=== PATIENT | female | born 1945 | race Caucasian/White ===

== ENCOUNTER → 2016-05-12 | Outpatient (CLI) | payer MEDICARE ==
--- NOTE | 2016-05-12 17:01 | MR ---
EXAMINATION TYPE: MR cervical spine wo con DATE OF EXAM: 05/12/2016 2:17 PM COMPARISON: NONE HISTORY: myalgia, osteoarthritis, disturbance of skin, cisneros TECHNIQUE: Multiplanar, multisequence images of the cervical spine were acquired. C2-C3: No evidence for degenerative disc disease. No disc bulge/herniation or protrusion. No Canal stenosis. Foramina are patent bilaterally. C3-C4: No evidence for degenerative disc disease. No disc bulge/herniation or protrusion. No Canal stenosis. Foramina are patent bilaterally. C4-C5: Minimal disc bulging is anterior thecal sac contact. No cord contact is evident. No spinal can al stenosis or neural foraminal stenosis is present. C5-C6: No focal disc herniation or significant disc bulge is evident. Mild right foraminal narrowing from uncovertebral joint hypertrophy is present. Left foramen is patent. C6-C7: Minimal disc bulge is present with anterior thecal sac contact. No AP spinal canal stenosis is present. No cord contact is evident. Neural foramen are patent. C7-T1: No evidence for degenerative disc disease. No disc bulge/herniation or protrusion. No Canal stenosis. Foramina are patent bilaterally. Cervical segments are intact. There is a kyphosis centered at C5. Cervical spinal cord is of normal signal. Craniovertebral junction relationships are within normal limits. IMPRESSION: Cervical kyphosis centered at C5. 2. Minimal disc bulging C4-5 and C6-7
== END | disposition home or self-care (01) ==
LOC: RADMRIMAIN 13:16
PROVIDERS: ATTEND Otolaryngology
DX: M50.221 Other cervical disc displacement at C4-C5 level (principal); M40.292 Other kyphosis, cervical region
CPT/HCPCS: 72141

== ENCOUNTER → 2016-10-24 | Outpatient (CLI) | payer MEDICARE ==
[2016-10-24 17:03] LABS: Blood Urea Nitrogen 13 mg/dL (7-17); Non-African American GFR(MDRD) >60 (>60 ml/min/1.73 sqM)
--- NOTE | 2016-10-24 18:01 | CT ---
EXAMINATION TYPE: CT angio neck DATE OF EXAM: 10/24/2016 HISTORY: Right sided stenosis, possible blood flow found on past doppler. COMPARISON: NONE CT DLP: 180.30 mGycm. Automated Exposure Control for Dose Reduction was Utilized. TECHNIQUE: CTA scan of the neck is performed with IV Contrast, patient injected with 65 mL of Omnipa que 350, axial images are obtained, coronal and sagittal reformatted images are reviewed. Three-D rec onstructed images are created on an independent workstation and reviewed. FINDINGS: There is normal branching pattern of the great vessels on the aortic arch. There is bilateral arteria l flow in the vertebral arteries. There is arterial flow in the basilar artery. There is subtotal occlusion of the proximal right internal carotid artery. There is plaque formation. There is approximate 50% stenosis of the left internal carotid artery near its origin. There is a di minutive right internal carotid artery in the petrous segment. There is very little arterial flow and visualized lumen in the mid and distal right internal carotid artery. IMPRESSION: Normal vertebral arteries. 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 Approximate 50% stenosis at the origin of the left internal carotid artery.
== END | disposition home or self-care (01) ==
LOC: RADCTMAIN 16:04
PROVIDERS: ATTEND Surgery Vascular Surgery
DX: I65.23 Occlusion and stenosis of bilateral carotid arteries (principal)
CPT/HCPCS: 82565; 84520; 70498; 36415; Q9967

== ENCOUNTER → 2017-06-01 | Outpatient (CLI) | payer MEDICARE ==
[2017-06-02 14:54] LABS: C-ANCA <1:20 Titer (<1:20); P-ANCA <1:20 Titer (<1:20)
== END | disposition home or self-care (01) ==
LOC: LABWHC1 08:35
PROVIDERS: ATTEND Psychiatry & Neurology Neurology
DX: G62.9 Polyneuropathy, unspecified (principal)
CPT/HCPCS: 36415; 82550; 85652; 86038; 86235; 86255

== ENCOUNTER → 2019-12-19 | Outpatient (CLI) | payer MEDICARE | END | disposition home or self-care (01) | LOC: LABWHC1 11:17 | PROVIDERS: ATTEND Psychiatry & Neurology Neurology | DX: G72.9 Myopathy, unspecified (principal) | CPT/HCPCS: 36415; 82550; 83519; 86255 ==

== ENCOUNTER → 2020-03-18 | Outpatient (CLI) | payer MEDICARE | END | disposition home or self-care (01) | LOC: LABPAT 15:37 | PROVIDERS: ATTEND Surgery | DX: Z20.822 Contact with and (suspected) exposure to COVID-19 (principal) | CPT/HCPCS: U0003; C9803; U0005 ==

== ENCOUNTER 2020-03-24 09:53 | Day surgery (SDC) | payer MEDICARE ==
[2020-03-19 15:09] VITALS: BMI 23.0
[2020-03-24] MEDS: DEXAMETHASONE SOD PHOSPHATE 4 MG/ML 1 ML VIAL IV ONE ×2 (09:40→10:40)
[2020-03-24] MEDS: ONDANSETRON 4 MG/2 ML VIAL IVP ONE ×2 (09:40→10:40)
[2020-03-24] MEDS: HEPARIN SODIUM,PORCINE 5,000 UNIT/ML 1 ML VIAL SQ PRN ×2 (09:40→10:40)
[2020-03-24] MEDS: ACETAMINOPHEN TAB 500 MG TAB PO PRN ×2 (09:40→10:40)
[2020-03-24] MEDS: LIDOCAINE 1% (10MG/ML) FOR IV START INTRADERMA PRN ×2 (09:40→10:40)
[~2020-03-24 09:53] MED LIST: HYDROmorphone 0.5 MG/0.5 ML SYRINGE IVP PRN; LACTATED RINGERS 1,000 ML IV SCH; MIDAZOLAM 2 MG/2 ML VIAL IV PRN; Pre Op ABX Message 1 EACH MISC MISCELLANE ONE; fentaNYL (PF) 50 MCG/ML 2 ML AMP IV PRN
[2020-03-24] MEDS ORDERED: LIDOCAINE 1% INJ 10MG/ML (20 ML MDV) ONE (11:04)
[2020-03-24] MEDS ORDERED: fentaNYL (PF) 50 MCG/ML 2 ML AMP ONE (11:04)
[2020-03-24] MEDS ORDERED: PROPOFOL 10 MG/ML 20 ML VIAL IV ONE (11:04)
[2020-03-24] MEDS ORDERED: PHENYLEPHRINE 10 MG/ML VIAL ONE (11:04)
[2020-03-24] MEDS ORDERED: SODIUM CHLORIDE 0.9% 50 ML with ceFAZolin 2,000 MG IV ONE ×2 (11:31)
[2020-03-24] MEDS ORDERED: BUPIVACAINE (PF) 0.5% 30 ML VIAL SQ ONE (11:31)
[2020-03-24 12:01] VITALS: TEMP 97.1
[2020-03-24] MEDS ORDERED: NALOXONE 0.4 MG/ML 1 ML VIAL IV PRN (12:22)
--- NOTE | 2020-03-24 12:25 | P.OP ---
Date of Procedure: 03/24/20 Procedure(s) Performed: PREOPERATIVE DIAGNOSIS: Muscular weakness POSTOPERATIVE DIAGNOSIS: Same PROCEDURE: Right quadriceps muscle biopsy SURGEON: Melissa EBL: Minimal ANESTHESIA: General COMPLICATIONS: None OPERATIVE PROCEDURE: Patient place in the operating table in the supine position. The patient's right thigh was prepped and draped sterilely. The skin was localized with Marcaine. An incision was then made. Subcutaneous tissues and fascia were divided using electrocautery. Patient's quadricep muscle was biopsied at that time. 3 separate pieces of muscle removed. A 1.5 cm tube, a 1.0 mL, and a 5-6 mm piece of muscle were removed and sent to pathology per [facility]'s instructions. Subcutaneous tissues were inspected. No bleeding was seen. The fascia was reapproximated using a short running 3-0 Vicryl suture. The subcutaneous tissues were closed using 3-0 Vicryl sutures. Skin was closed using a running 4-0 Monocryl suture. Skin glue applied. DISPOSITION: Stable to recovery room
[2020-03-24 12:49] VITALS: BP 118/60; PULSE 63; RESP 16
--- NOTE | 2020-03-26 07:32 | CDI ---
Date: 03.26.20 CDS/Php Programmer Name: Nelli Ramirez Phone: If any questions, call Janeth Otto Car Rental Agent at [phone] Patient Name: Ashley Feliciano Admit Date 03.24.20 Discharge Date: 03.24.20 ATTENTION: The [facility] Coding Staff appreciate your assistance in clarifying documentation. Please respond to the clarification below the line at the bottom and electronically sign. The [facility] Coding staff will review the response and follow-up if needed. Please note: Queries are made part of the Legal Health Record. If you have any questions, please contact the Car Rental Agent. Dear Dr. Torres In order to code to the greatest specificity and for the greatest reimbursement I need the following information: You have documented in your OP note that 3 separate pieces of muscle removed, please specify the depth of the biopsies: __Superficial _x_Deep Thank you for your kind consideration. MTDD
== END 2020-03-24 13:10 | disposition home or self-care (01) ==
LOC: OR 09:53
PROVIDERS: ATTEND Surgery
DX: M60.851 Other myositis, right thigh (principal); M32.9 Systemic lupus erythematosus, unspecified; I73.9 Peripheral vascular disease, unspecified; I65.21 Occlusion and stenosis of right carotid artery; M19.90 Unspecified osteoarthritis, unspecified site; Z79.52 Long term (current) use of systemic steroids; Z79.899 Other long term (current) drug therapy; Z79.82 Long term (current) use of aspirin; Z86.73 Personal history of transient ischemic attack (TIA), and cerebral infarction without residual deficits; Z87.891 Personal history of nicotine dependence
CPT/HCPCS: 20205; J1644; J1100; J2370; J2405; J0690; J2001; J3010; J2704

== ENCOUNTER → 2024-01-05 | Day surgery (SDC) | payer MEDICARE ==
--- NOTE | 2024-01-04 17:56 | HP ---
HISTORY AND PHYSICAL CHIEF COMPLAINT: Fluid in both ears. HISTORY OF PRESENT ILLNESS: This patient is a 78-year-old female, who was recently seen in my office complaining of having a plugged sensation mainly in the left ear, but occasionally in her right ear. She denied having had a recent upper respiratory tract infection. At the time that she was seen in the office, clinical examination of the ears revealed chronic bilateral serous otitis media, so-called glue ear. The patient was given two rounds of oral dexamethasone and followed up in the office. When the patient returned, she stated that the left ear was not any better and the right ear was also causing problems. Clinical examination once again revealed evidence of chronic bilateral serous otitis media, so-called glue ear. It was, therefore, recommended that she undergo a bilateral myringotomy with insertion of ventilation tubes under IV sedation with MAC. PAST MEDICAL HISTORY: Reveals the patient has no known allergies to medications. MEDICATIONS: Her current medications include atorvastatin. REVIEW OF SYSTEMS: Reveals that the, METABOLIC/ENDOCRINE SYSTEM: Positive for hypercholesterolemia. MUSCULOSKELETAL SYSTEM: Positive for osteoarthritis and cervical myalgia. Remainder review of systems is unremarkable. PREVIOUS SURGERIES: Include tonsillectomy and adenoidectomy, bilateral cataract surgery, and colonoscopy. The patient is 0 para, 0 , 0 miscarriage. PHYSICAL EXAMINATION: GENERAL: This patient is a 78-year-old female, who is alert and cooperative. HEENT: The patient is normocephalic. Both tympanic membranes are dull with fluid in both middle ear spaces. Pupils equal, round, reactive to light and accommodation. Extraocular movements are within normal limits. Intranasal examination reveals moderate to severe septal deviation with compensatory hypertrophy of the inferior turbinates and a moderate amount of mucus on the mucous membranes and draining down the posterior pharynx. Examination of the oropharynx and the remainder of the head and neck exam all within normal limits. CHEST/CARDIOVASCULAR: Both lung orr are clear to percussion and auscultation. The patient is in regular sinus rhythm. S1, S2 are present without evidence any murmurs, S3s, or S4s. Peripheral pulses are bilaterally symmetrical. ABDOMEN: There is no evidence any masses, megaly, or tenderness. The abdomen is soft. SKIN: Unremarkable. MUSCULOSKELETAL: Within normal limits. NEUROLOGICAL: Within normal limits. PELVIC/RECTAL: This should be printed. The pelvic/rectal exam is deferred at this time because the patient has it done on a regular basis at her family physician's office. The remainder of the physical exam is unremarkable. IMPRESSION: Chronic bilateral serous otitis media. PLAN: The patient is scheduled to undergo a bilateral myringotomy with insertion of ventilation tubes under IV sedation with MAC in the a.m. Attention, RNs in the pre-surgical area: I have not ordered any pre-surgical prophylactic antibiotics for this patient. If the Pharmacy Department sends any pre- surgical prophylactic antibiotics to the pre-surgical area for this patient, please return that medication to the Pharmacy Department and cancel that order. Also, please make sure that the patient's account is credited appropriately. I have discussed the risks, benefits and alternative therapies for the above-mentioned procedure and for both sedation/analgesia as well as necessary blood product administration, if indicated, as they pertain to this patient. The patient has indicated her understanding and acceptance of the risks and procedures discussed. MMAMYL / IJN: [id number] /
[~2024-01-05] MED LIST changes: -HYDROmorphone 0.5 MG/0.5 ML SYRINGE IVP PRN; -LACTATED RINGERS 1,000 ML IV SCH; -MIDAZOLAM 2 MG/2 ML VIAL IV PRN; +MIDAZOLAM 2 MG/2 ML VIAL ONE; +PROPOFOL 10 MG/ML 20 ML VIAL IV ONE; -fentaNYL (PF) 50 MCG/ML 2 ML AMP IV PRN; +fentaNYL (PF) 50 MCG/ML 2 ML AMP ONE
[2024-01-05 10:00] VITALS: TEMP 97.2
[2024-01-05] MEDS: IV FLUID CONTINUATION 1,000 ML IV ONE ×2 (10:20→11:26)
[2024-01-05] MEDS: LACTATED RINGERS 1,000 ML IV SCH (10:21)
[2024-01-05] MEDS: ONDANSETRON 4 MG/2 ML VIAL IVP STA (10:22)
[2024-01-05] MEDS: DEXAMETHASONE SOD PHOSPHATE 4 MG/ML 1 ML VIAL IVP STA (10:23)
[2024-01-05] MEDS: OFLOXACIN 0.3% OPHTH DROPS 5 ML BOTTLE BOTH EARS ONE (11:00)
[2024-01-05 11:29] VITALS: RESP 16
[2024-01-05 11:38] VITALS: BP 115/56; PULSE 78
--- NOTE | 2024-01-08 12:32 | OP ---
OPERATIVE REPORT DATE OF SERVICE : 01/05/2024 PREOPERATIVE DIAGNOSIS: Chronic bilateral serous otitis media. POSTOPERATIVE DIAGNOSIS: Chronic bilateral serous otitis media. ANESTHESIA: IV sedation with MAC. PROCEDURE PERFORMED: Bilateral myringotomy with insertion of plastic Neda-Bobbin ventilation tubes. COMPLICATIONS: None. DESCRIPTION OF PROCEDURE: The patient was placed on the Operating table in the supine position after uneventful induction and IV sedation, satisfactory general anesthesia was obtained. Next, the operating microscope was brought into position over the patient?s right ear where after insertion of a #3 aural speculum, the external canal was cleansed of all wax and debris. The myringotomy knife was used to make an incision in the anterior inferior quadrant of the right tympanic membrane. The middle ear space was suctioned free of all fluid and a 1.1 mm Neda bobbin ventilation tube was inserted without any difficulty. Attention was then directed to the left ear where the same procedure was carried out using the operating microscope, #3 aural speculum, the external auditory canal was cleansed of all wax and debris. The myringotomy knife was used to make an incision in the anterior inferior quadrant of the left tympanic membrane and the middle ear space was suctioned free of all fluid. A 1.1 mm Neda bobbin ventilation tube was inserted without any difficulty. At this point, the procedure was terminated. There were no intraoperative complications. The patient tolerated the procedure well and was returned to the Recovery Room in satisfactory condition. MMFINN / RUDY: [id number] /
== END ==
LOC: OR 09:18
PROVIDERS: ATTEND Otolaryngology
DX: H65.23 Chronic serous otitis media, bilateral (principal); I67.9 Cerebrovascular disease, unspecified; Z90.89 Acquired absence of other organs; Z87.891 Personal history of nicotine dependence
CPT/HCPCS: 69436; J2250; J1100; J2405; J3010; J2704

== ENCOUNTER 2024-01-31 10:10 | Emergency (ER) | payer MEDICARE ==
[2024-01-31 10:16] VITALS: TEMP 97.3
[2024-01-31 11:10] LABS: Basophils % (A) 1 %; Eosinophils # (A) 0.1 k/uL (0-0.7); Eosinophils % (A) 3 %; HCT 36.8 % (34.0-46.0); HGB 12.5 gm/dL (11.4-16.0); Lymphocytes # (A) 1.4 k/uL (1.0-4.8); Lymphocytes % (A) 29 %; MCH 32.7 pg (25.0-35.0); MCHC 33.9 g/dL (31.0-37.0); MCV 96.4 fL (80.0-100.0); Mean Platelet Volume 7.9; Monocytes # (A) 0.5 k/uL (0-1.0); Monocytes % (A) 10 %; Neutrophils # (A) 2.6 k/uL (1.3-7.7); Neutrophils % (A) 54 %; Platelet Count 257 k/uL (150-450); RBC 3.82 m/uL (3.80-5.40); WBC 4.7 k/uL (3.8-10.6)
[2024-01-31 11:16] LABS: Appearance,Urine Clear (Clear); Bilirubin,Urine Negative (Negative); Blood,Urine Negative (Negative); Color,Urine Colorless; Glucose,Urine (UA) Negative (Negative); Ketones,Urine Negative (Negative); Leukocyte Esterase,Urine Moderate (Negative); Nitrite,Urine Negative (Negative); Protein,Urine Negative (Negative); RBC,Urine 1 /hpf (0-5); Specific Gravity,Urine 1.004 (1.001-1.035); Squamous Epithelial Cell,Urine 3 /hpf (0-4); Urobilinogen,Urine <2.0 mg/dL (<2.0); WBC,Urine 3 /hpf (0-5)
[2024-01-31 11:22] LABS: ALT 26 U/L (4-34); AST 32 U/L (14-36); African American GFR (CKD) 89 (>60 ml/min/1.73 sqM); Albumin 4.5 g/dL (3.5-5.0); Alkaline Phosphatase 85 U/L (38-126); Amylase 78 U/L (30-110); Anion Gap 8 mmol/L; Blood Urea Nitrogen 14 mg/dL (7-17); Calcium 9.2 mg/dL (8.4-10.2); Carbon Dioxide 22 mmol/L (22-30); Chloride 103 mmol/L (98-107); Glucose 100 mg/dL (74-99); Lipase 230 U/L (23-300); Non-African American GFR(CKD) 77 (>60 ml/min/1.73 sqM); Potassium 4.8 mmol/L (3.5-5.1); Sodium 133 mmol/L (137-145); Total Bilirubin 0.7 mg/dL (0.2-1.3); Total Protein 6.8 g/dL (6.3-8.2)
--- NOTE | 2024-01-31 11:22 | ED ---
General Adult HPI - General Chief complaint: Abdominal Pain Stated complaint: Lower abd pain, diarrhea Time Seen by Provider: 01/31/24 10:18 Source: patient, RN notes reviewed Mode of arrival: ambulatory Limitations: no limitations - History of Present Illness Initial comments: 78-year-old female presents to the emergency department for evaluation of di arrhea and abdominal discomfort. Patient reports that symptoms have been going on for 1 week. She notes that the abdominal pain is intermittent and near her umbilicus. She states that this does not seem to have correlation with when she has to have a bowel movement. Patient reports that she has had 1 episode of diarrhea daily for the past 7 days. She does admit to a dark stool on Monday but has had no further. She was evaluated at [facility] for the symptoms on Monday. At that time she had laboratory studies and a normal CT scan. She was Hemoccult negative at that time. She denies any recent fever, chills, nausea, vomiting. Denies any prior abdominal surgeries. She denies any recent antibiotic use or travel. - Related Data Home Medications Medication Instructions Recorded Confirmed Aspirin 81 mg PO DAILY 01/05/24 01/31/24 Cholestyramine (with Sugar) 4 gm PO BID PRN 01/05/24 01/31/24 [Cholestyramine Packet] Artificial Tears-Hypromellose 1 drops BOTH EYES Q2H PRN 01/31/24 01/31/24 [Artificial Tear Drops] Atorvastatin [Lipitor] 5 mg PO HS 01/31/24 01/31/24 Blink Supplement 1 tab PO DAILY 01/31/24 01/31/24 Allergies Allergy/AdvReac Type Severity Reaction Status Date / Time No Known Allergies Allergy Verified 01/31/24 10:58 Review of Systems ROS Statement: Those systems with pertinent positive or pertinent negative responses have been documented in the HPI. ROS Other: All systems not noted in ROS Statement are negative. Past Medical History Past Medical History: CVA/TIA, Osteoarthritis (OA) Additional Past Medical History / Comment(s): stroke 5 yrs ago-no residual effects, History of Any Multi-Drug Resistant Organisms: None Reported Past Surgical History: Tonsillectomy Past Anesthesia/Blood Transfusion Reactions: No Reported Reaction Past Psychological History: No Psychological Hx Reported Smoking Status: Former smoker Past Alcohol Use History: None Reported Past Drug Use History: None Reported - Past Family History Mother Family Medical History: Cancer Sister(s) Family Medical History: Cancer General Exam Limitations: no limitations General appearance: alert, in no apparent distress Head exam: Present: atraumatic, normocephalic, normal inspection Eye exam: Present: normal appearance, PERRL, EOMI. Absent: scleral icterus, conjunctival injection, periorbital swelling ENT exam: Present: normal exam, mucous membranes moist Neck exam: Present: normal inspection. Absent: tenderness, meningismus, lymphadenopathy Respiratory exam: Present: normal lung sounds bilaterally. Absent: respiratory distress, wheezes, rales, rhonchi, stridor Cardiovascular Exam: Present: regular rate, normal rhythm, normal heart sounds. Absent: systolic murmur, diastolic murmur, rubs, gallop, clicks GI/Abdominal exam: Present: soft, normal bowel sounds. Absent: distended, tenderness, guarding, rebound, rigid Extremities exam: Present: normal inspection, full ROM, normal capillary refill. Absent: tenderness, pedal edema, joint swelling, calf tenderness Back exam: Present: normal inspection Neurological exam: Present: alert, oriented X3 Psychiatric exam: Present: normal affect, normal mood Skin exam: Present: warm, dry, intact, normal color. Absent: rash Course Vital Signs 01/31/24 01/31/24 10:12 12:55 Temperature 97.3 F L Pulse Rate 65 87 Respiratory 20 18 Rate Blood Pressure 144/63 136/87 O2 Sat by Pulse 99 98 Oximetry Medical Decision Making - Medical Decision Making Was pt. sent in by a medical professional or institution (, PA, OCEANOGRAPHY TEACHER, urgent care, hospital, or [facility]...) When possible be specific @ -No Did you speak to anyone other than the patient for history (EMS, parent, family, police, friend...)? What history was obtained from this source @ -No Did you review nursing and triage notes (agree or disagree)? Why? @ -I reviewed and agree with nursing and triage notes Were old charts reviewed (outside hosp., previous admission, EMS record, old E KG, old radiological studies, urgent care reports/EKG's, [facility] records)? Report findings @ -CT report from [facility] was reviewed revealing no acute process Differential Diagnosis (chest pain, altered mental status, abdominal pain women, abdominal pain men, vaginal bleeding, weakness, fever, dyspnea, syncope, headache, dizziness, GI bleed, back pain, seizure, CVA, palpatations, mental health, musculoskeletal)? @ -Differential Abdominal Pain Women: Appendicitis, Cholecystitis, diverticulosis, ischemic bowel, pancreatitis, hepatitis, UTI, gastroenteritis, AAA, incarcerated hernia, bowel obstruction, constipation, inflammatory bowel, hepatitis, peptic ulcer disease, splenic infarction, perforated viscus, vulvitis, ovarian torsion, PID, kidney stone, placenta abruption, this is not meant to be an all-inclusive list EKG interpreted by me (3pts min.). @ -none X-rays interpreted by me (1pt min.). @ -None done CT interpreted by me (1pt min.). @ -None done U/S interpreted by me (1pt. min.). @ -None done What testing was considered but not performed or refused? (CT, X-rays, U/S, labs)? Why? @ -CT considered, patient recently had performed at [facility] and I reviewed the report What meds were considered but not given or refused? Why? @ -None Did you discuss the management of the patient with other professionals (professionals i.e. , PA, OCEANOGRAPHY TEACHER, lab, RT, psych nurse, social research assistant, vacuum applicator operator, teacher, commercial account officer, correctional counselor/case manager)? Give summary @ -No Was smoking cessation discussed for >3mins.? @ -No Was critical care preformed (if so, how long)? @ -No Were there social determinants of health that impacted care today? How? (Homelessness, low income, unemployed, alcoholism, drug addiction, transportation, low edu. Level, literacy, decrease access to med. care, prison, rehab)? @ -No Was there de-escalation of care discussed even if they declined (Discuss DNR or withdrawal of care, Hospice)? DNR status @ -No What co-morbidities impacted this encounter? (DM, HTN, Smoking, COPD, CAD, Cancer, CVA, ARF, Chemo, Hep., AIDS, mental health diagnosis, sleep apnea, morbid obesity)? @ -None Was patient admitted / discharged? Hospital course, mention meds given and route, prescriptions, significant lab abnormalities, going to OR and other p ertinent info. @ -Discharged. Patient presented to the emergency department for evaluation of diarrhea and abdominal pain. She is not currently experiencing any abdominal pain. Patient nontender to palpation. I reviewed the records of her laboratory studies and CT from [facility] from Monday which showed no significant abnormality. Laboratory studies were repeated today CBC shows no significant leukocytosis, hemoglobin stable; patient mildly hyponatremic with a sodium of 133, potassium 4.8; UA shows no evidence of infectious process, negative for blood. Discussed findings with the patient. Advised follow-up with her PCP. She is understanding agreeable plan. Patient stable at time of discharge. Case discussed with Dr. Horvath Undiagnosed new problem with uncertain prognosis? @ -No Drug Therapy requiring intensive monitoring for toxicity (Heparin, Nitro, Insulin, Cardizem)? @ -No Were any procedures done? @ -No Diagnosis/symptom? @ -Diarrhea Acute, or Chronic, or Acute on Chronic? @ -Acute Uncomplicated (without systemic symptoms) or Complicated (systemic symptoms)? @ -Uncomplicated Side effects of treatment? @ -No Exacerbation, Progression, or Severe Exacerbation? @ -No Poses a threat to life or bodily function? How? (Chest pain, [place], [place], pneumonia, PE, COPD, DKA, ARF, appy, cholecystitis, CVA, Diverticulitis, Homicidal, Suicidal, threat to staff... and all critical care pts) @ -No - Lab Data Result diagrams: 01/31/24 10:54 01/31/24 10:54 Lab Results 01/31/24 01/31/24 01/31/24 Range/Units 10:54 10:54 10:54 WBC 4.7 (3.8-10.6) k/uL RBC 3.82 (3.80-5.40) m/uL Hgb 12.5 (11.4-16.0) gm/dL Hct 36.8 (34.0-46.0) % MCV 96.4 (80.0-100.0) fL MCH 32.7 (25.0-35.0) pg MCHC 33.9 (31.0-37.0) g/dL RDW 13.0 (11.5-15.5) % Plt Count 257 (150-450) k/uL MPV 7.9 Neutrophils % 54 % Lymphocytes % 29 % Monocytes % 10 % Eosinophils % 3 % Basophils % 1 % Neutrophils # 2.6 (1.3-7.7) k/uL Lymphocytes # 1.4 (1.0-4.8) k/uL Monocytes # 0.5 (0-1.0) k/uL Eosinophils # 0.1 (0-0.7) k/uL Basophils # 0.0 (0-0.2) k/uL Sodium 133 L (137-145) mmol/L Potassium 4.8 (3.5-5.1) mmol/L Chloride 103 (98-107) mmol/L Carbon Dioxide 22 (22-30) mmol/L Anion Gap 8 mmol/L BUN 14 (7-17) mg/dL Creatinine 0.76 (0.52-1.04) mg/dL Est GFR (CKD-EPI)AfAm 89 (>60 ml/min/1.73 sqM) Est GFR (CKD-EPI)NonAf 77 (>60 ml/min/1.73 sqM) Glucose 100 H (74-99) mg/dL Plasma Lactic Acid Mauricio (0.7-2.0) mmol/L Calcium 9.2 (8.4-10.2) mg/dL Total Bilirubin 0.7 (0.2-1.3) mg/dL AST 32 (14-36) U/L ALT 26 (4-34) U/L Alkaline Phosphatase 85 (38-126) U/L Total Protein 6.8 (6.3-8.2) g/dL Albumin 4.5 (3.5-5.0) g/dL Amylase 78 (30-110) U/L Lipase 230 (23-300) U/L Urine Color Colorless Urine Appearance Clear (Clear) Urine pH 6.0 (5.0-8.0) Ur Specific [place] 1.004 (1.001-1.035) Urine Protein Negative (Negative) Urine Glucose (UA) Negative (Negative) Urine Ketones Negative (Negative) Urine Blood Negative (Negative) Urine Nitrite Negative (Negative) Urine Bilirubin Negative (Negative) Urine Urobilinogen <2.0 (<2.0) mg/dL Ur Leukocyte Esterase Moderate H (Negative) Urine RBC 1 (0-5) /hpf Urine WBC 3 (0-5) /hpf Ur Squamous Epith Cells 3 (0-4) /hpf 01/30/ Range/Units 10:54 WBC (3.8-10.6) k/uL RBC (3.80-5.40) m/uL Hgb (11.4-16.0) gm/dL Hct (34.0-46.0) % MCV (80.0-100.0) fL MCH (25.0-35.0) pg MCHC (31.0-37.0) g/dL RDW (11.5-15.5) % Plt Count (150-450) k/uL MPV Neutrophils % % Lymphocytes % % Monocytes % % Eosinophils % % Basophils % % Neutrophils # (1.3-7.7) k/uL Lymphocytes # (1.0-4.8) k/uL Monocytes # (0-1.0) k/uL Eosinophils # (0-0.7) k/uL Basophils # (0-0.2) k/uL Sodium (137-145) mmol/L Potassium (3.5-5.1) mmol/L Chloride (98-107) mmol/L Carbon Dioxide (22-30) mmol/L Anion Gap mmol/L BUN (7-17) mg/dL Creatinine (0.52-1.04) mg/dL Est GFR (CKD-EPI)AfAm (>60 ml/min/1.73 sqM) Est GFR (CKD-EPI)NonAf (>60 ml/min/1.73 sqM) Glucose (74-99) mg/dL Plasma Lactic Acid Mauricio 1.2 (0.7-2.0) mmol/L Calcium (8.4-10.2) mg/dL Total Bilirubin (0.2-1.3) mg/dL AST (14-36) U/L ALT (4-34) U/L Alkaline Phosphatase (38-126) U/L Total Protein (6.3-8.2) g/dL Albumin (3.5-5.0) g/dL Amylase (30-110) U/L Lipase (23-300) U/L Urine Color Urine Appearance (Clear) Urine pH (5.0-8.0) Ur Specific [place] (1.001-1.035) Urine Protein (Negative) Urine Glucose (UA) (Negative) Urine Ketones (Negative) Urine Blood (Negative) Urine Nitrite (Negative) Urine Bilirubin (Negative) Urine Urobilinogen (<2.0) mg/dL Ur Leukocyte Esterase (Negative) Urine RBC (0-5) /hpf Urine WBC (0-5) /hpf Ur Squamous Epith Cells (0-4) /hpf Disposition Clinical Impression: Diarrhea Disposition: HOME SELF-CARE Condition: Stable Instructions (If sedation given, give patient instructions): Acute Diarrhea (ED) Additional Instructions: Please follow up with your primary care provider. Return to the emergency department for new or worsening symptoms. Is patient prescribed a controlled substance at d/c from ED?: No Referrals: Perry Pearce MD [Primary Care Provider] - 1-2 days
[2024-01-31 12:57] VITALS: BP 136/87; PULSE 87; RESP 18
== END 2024-01-31 13:04 | disposition home or self-care (01) ==
LOC: EC 10:10
DX: R19.7 Diarrhea, unspecified (principal); Z86.73 Personal history of transient ischemic attack (TIA), and cerebral infarction without residual deficits; Z87.891 Personal history of nicotine dependence
CPT/HCPCS: 36415; 80053; 81001; 82150; 83605; 83690; 85025; 99284